=== PATIENT | male | born 1945 | race Caucasian/White ===

== ENCOUNTER 2022-11-10 08:22 | Day surgery (SDC) | payer OTHER ==
[2022-11-05 15:54] VITALS: BMI 21.5
[2022-11-10 11:00] VITALS: TEMP 97.4
[2022-11-10 11:05] VITALS: BP 114/67; PULSE 61; RESP 18
== END 2022-11-10 11:00 | disposition home or self-care (01) ==
LOC: FASU-ENDO 08:22
PROVIDERS: ATTEND Internal Medicine Gastroenterology
PROC: 0DBM8ZX Excision of Descending Colon, Via Natural or Artificial Opening Endoscopic, Diagnostic (ICD-10-PCS; principal; 2022-11-10 09:28)
DX: Z12.11 Encounter for screening for malignant neoplasm of colon (principal); K63.5 Polyp of colon; Z86.010 Personal history of colon polyps; Z83.71 Family history of colonic polyps
CPT/HCPCS: 88305-TC